=== PATIENT | female | born 1960 | race Caucasian/White ===

== ENCOUNTER 2020-09-08 01:58 | Inpatient (IN) | payer MEDICAID ==
[~2020-09-08] VITALS: Ht 167.6 cm; Wt 120.9 kg
--- NOTE | 2020-09-08 02:20 | NUR ---
Pt transfer from [facility] for abd fistula. Pt with hx of Crohns, has had a bowel resection and has colostomy. Pt states that 2 days ago she noticed a new wound on her abd draining fluid. Pt was tx with dx of abd fistual. Pt is A&O x4. Pt has no other complaints besides her abd wound. wound covered with 4x4. Will monitor.
[2020-09-08] MEDS ORDERED: SODIUM CHLORIDE 0.9% 1,000 ML IV ONE (03:00)
[2020-09-08] MEDS ORDERED: MORPHINE SULFATE 4 MG/ML, 1ML IVPush PRN (03:00)
[2020-09-08] MEDS ORDERED: ONDANSETRON 2MG/ML, 2ML IVPush PRN ×2 (03:00→04:00)
[2020-09-08] MEDS ORDERED: MORPHINE SULFATE 4 MG/ML, 1ML ONE (03:05)
[2020-09-08] MEDS ORDERED: ONDANSETRON 2MG/ML, 2ML ONE (03:05)
--- NOTE | 2020-09-08 03:25 | NUR ---
Pt medicated per order. Gauze changed to wound, continues to leak. Gown changed. Pt A&O with no further changes. Stable VS. Will monitor.
--- NOTE | 2020-09-08 03:31 | NUR ---
Report to Ashli LINDA .
[2020-09-08 03:52] VITALS: BP 166/98
[2020-09-08] MEDS ORDERED: DEXTROSE 50%, 50ML SYRINGE IVPush PRN (04:00)
[2020-09-08] MEDS ORDERED: GLUCAGON 1 MG IM PRN (04:00)
[2020-09-08] MEDS ORDERED: DEXTROSE 4 GM TAB.CHEW PO PRN (04:00)
[2020-09-08] MEDS ORDERED: MELATONIN 5 MG TABLET PO PRN (04:00)
[2020-09-08] MEDS: POTASSIUM CHLORIDE 20 MEQ in LACTATED RINGERS 1,000 ML IV SCH ×2 (04:33→15:00)
[2020-09-08 05:18] LABS: BASOPHILS % (AUTO) 1 % (0-1); EOSINOPHILS % (AUTO) 2 % (1-7); LYMPHOCYTES % (AUTO) 22 % (22-44); MEAN CORPUSCULAR HEMOGLOBIN 31.3 pg (27.0-34.8); MEAN CORPUSCULAR HGB CONC 34.3 g/dL (32.4-35.8); MEAN PLATELET VOLUME 6.4 fL (7.4-10.4); MONOCYTES % (AUTO) 6 % (2-9); NEUTROPHILS % (AUTO) 70 % (42-75); PLATELET COUNT 319 x10^3/uL (130-400); RED BLOOD COUNT 3.58 x10^6/uL (3.82-5.3); RED CELL DISTRIBUTION WIDTH 14.5 % (9.6-15.2)
[2020-09-08 05:21] LABS: MD NO
[2020-09-08 05:26] LABS: INTERNATIONAL NORMALIZED RATIO 1.03 (0.93-1.1)
[2020-09-08] MEDS: INSULIN LISPRO 100 UNITS/ML, PEN SQ-INSULIN SCH ×4 (07:12→19:59)
[2020-09-08 07:18] LABS: ALANINE AMINOTRANSFERASE 19 U/L (12-78); ALBUMIN 2.7 g/dL (3.4-5.0); ANION GAP 7 mmol/L (5-15); CALCIUM 8.3 mg/dL (8.5-10.1); CHLORIDE 110 mmol/L (98-107)
[2020-09-08 07:20] LABS: ALKALINE PHOSPHATASE 99 U/L (45-117); BILIRUBIN,TOTAL 0.3 mg/dL (0.2-1.0); TOTAL PROTEIN 7.3 g/dL (6.4-8.2)
[2020-09-08 07:54] VITALS: BP 135/81
[2020-09-08] MEDS: SODIUM CHLORIDE FLUSH 10ML SYR IVF SCH ×2 (08:33→19:59)
[2020-09-08] MEDS: morphine SULFATE 10 MG/ML, 1ML IVPush PRN ×3 (09:31→20:00)
[2020-09-08 13:08] VITALS: BP 148/80
[2020-09-08 19:43] VITALS: BP 144/84
[2020-09-09] VITALS (7 sets, daily range): BP systolic 169–197; BP diastolic 78–103
[2020-09-09] MEDS: POTASSIUM CHLORIDE 20 MEQ in LACTATED RINGERS 1,000 ML IV SCH ×2 (00:10→11:48)
[2020-09-09] MEDS: hydrALAzine 20 MG/ML, 1ML IVPush PRN ×4 (01:57→19:00)
[2020-09-09] MEDS: morphine SULFATE 10 MG/ML, 1ML IVPush PRN ×4 (02:07→21:25)
[2020-09-09] MEDS ORDERED: FLU VACC QS2020-21(6MOS UP)/PF 60MCG/0.5 ML SYR IM ONE (02:30)
[2020-09-09] MEDS ORDERED: ALBU90AE2 INH (03:59)
[2020-09-09] MEDS ORDERED: CLON0.1T2 PO (04:00)
[2020-09-09 05:26] LABS: ALBUMIN 2.5 g/dL (3.4-5.0); ANION GAP 6 mmol/L (5-15); CALCIUM 8.3 mg/dL (8.5-10.1); CHLORIDE 107 mmol/L (98-107)
[2020-09-09 05:29] LABS: ALANINE AMINOTRANSFERASE 16 U/L (12-78); ALKALINE PHOSPHATASE 100 U/L (45-117); BILIRUBIN,TOTAL 0.2 mg/dL (0.2-1.0); CREATININE 1.28 mg/dL (0.55-1.02); TOTAL PROTEIN 7.1 g/dL (6.4-8.2)
[2020-09-09] MEDS: INSULIN LISPRO 100 UNITS/ML, PEN SQ-INSULIN SCH ×4 (07:00→21:26)
[2020-09-09] MEDS ORDERED: SODIUM CHLORIDE 0.9% 1,000ML IVBOLUS ONE (07:00)
[2020-09-09 07:13] LABS: BASOPHILS % (AUTO) 1 % (0-1); EOSINOPHILS % (AUTO) 1 % (1-7); LYMPHOCYTES % (AUTO) 25 % (22-44); MEAN CORPUSCULAR HEMOGLOBIN 31.3 pg (27.0-34.8); MEAN PLATELET VOLUME 6.5 fL (7.4-10.4); MONOCYTES % (AUTO) 5 % (2-9); NEUTROPHILS % (AUTO) 69 % (42-75); PLATELET COUNT 324 x10^3/uL (130-400); RED BLOOD COUNT 3.69 x10^6/uL (3.82-5.3); RED CELL DISTRIBUTION WIDTH 14.1 % (9.6-15.2)
[2020-09-09 07:16] LABS: MD NO
[2020-09-09] MEDS: SODIUM CHLORIDE FLUSH 10ML SYR IVF SCH ×2 (08:09→21:16)
[2020-09-09] MEDS ORDERED: ONDANSETRON 4 MG TABLET ONE (20:44)
[2020-09-09] MEDS: ONDANSETRON ODT 4 MG PO PRN (20:47)
[2020-09-09] MEDS ORDERED: hydrALAzine 20 MG/ML, 1ML IV PRN (22:30)
[2020-09-09] MEDS ORDERED: hydrALAzine 20 MG/ML, 1ML IV ONE (22:30)
[2020-09-10] MEDS: morphine SULFATE 10 MG/ML, 1ML IVPush PRN ×4 (00:22→12:50)
[2020-09-10 02:04] VITALS: BP 166/98
[2020-09-10] MEDS: POTASSIUM CHLORIDE 20 MEQ in LACTATED RINGERS 1,000 ML IV SCH ×2 (04:39→12:50)
[2020-09-10 05:21] LABS: BASOPHILS % (AUTO) 0 % (0-1); EOSINOPHILS % (AUTO) 1 % (1-7); LYMPHOCYTES % (AUTO) 12 % (22-44); MEAN CORPUSCULAR HEMOGLOBIN 31.4 pg (27.0-34.8); MEAN CORPUSCULAR HGB CONC 34.3 g/dL (32.4-35.8); MEAN PLATELET VOLUME 6.3 fL (7.4-10.4); MONOCYTES % (AUTO) 6 % (2-9); NEUTROPHILS % (AUTO) 81 % (42-75); PLATELET COUNT 303 x10^3/uL (130-400); RED CELL DISTRIBUTION WIDTH 14.6 % (9.6-15.2)
[2020-09-10 05:22] LABS: MD NO
[2020-09-10 05:32] LABS: ANION GAP 6 mmol/L (5-15); CALCIUM 8.4 mg/dL (8.5-10.1); CHLORIDE 106 mmol/L (98-107)
[2020-09-10 05:33] LABS: CREATININE 1.14 mg/dL (0.55-1.02)
[2020-09-10] MEDS: INSULIN LISPRO 100 UNITS/ML, PEN SQ-INSULIN SCH ×2 (06:33→10:49)
[2020-09-10 06:56] VITALS: BP 159/83
[2020-09-10] MEDS: SODIUM CHLORIDE FLUSH 10ML SYR IVF SCH (08:21)
[2020-09-10] MEDS ORDERED: HYDROCHLOROTHIAZIDE 25 MG TABLET PO SCH (09:00)
[2020-09-10] MEDS ORDERED: ICN CLONIDINE 4MCG/ML ORAL.DIL PO SCH (09:00)
[2020-09-10] MEDS: ONDANSETRON ODT 4 MG PO PRN (09:47)
[2020-09-10] MEDS ORDERED: CLON0.1T22 PO (10:43)
[2020-09-10] MEDS ORDERED: HYDR25TA6 PO (10:43)
== END 2020-09-10 15:12 | disposition home or self-care (01) | DRG 254 ==
LOC: ED 02:40 → EDIP 02:53 → 4NE 03:46 → DCLOUNGE 09-10 15:09
PROVIDERS: ADMIT Internal Medicine; ATTEND Family Medicine
DX: K63.2 Fistula of intestine (principal); K50.00 Crohn's disease of small intestine without complications; Z68.41 Body mass index [BMI] 40.0-44.9, adult; N17.9 Acute kidney failure, unspecified; R65.10 Systemic inflammatory response syndrome (SIRS) of non-infectious origin without acute organ dysfunction; E11.22 Type 2 diabetes mellitus with diabetic chronic kidney disease; E66.9 Obesity, unspecified; F17.200 Nicotine dependence, unspecified, uncomplicated; I12.9 Hypertensive chronic kidney disease with stage 1 through stage 4 chronic kidney disease, or unspecified chronic kidney disease; I16.0 Hypertensive urgency; J44.9 Chronic obstructive pulmonary disease, unspecified; N18.9 Chronic kidney disease, unspecified; Z79.84 Long term (current) use of oral hypoglycemic drugs; Z90.49 Acquired absence of other specified parts of digestive tract; Z90.710 Acquired absence of both cervix and uterus; Z93.3 Colostomy status
CPT/HCPCS: 36415; 80048; 80053; 82962; 83036; 83735; 84100; 84443; 85025; 85610; 90686; 93005; 96374; 96375; 99285; G0378; J2405; J3480; Q0162; J0360; J1815; J2270; J7030; J7120